=== PATIENT | female | born 1970 | race Caucasian/White ===

== ENCOUNTER → 2018-02-23 | Outpatient (CLI) | payer OTHER ==
[~2018-02-23] MED LIST: ASCO500T8 PO; AZAT50TA9 PO; CALC-171 PO; CHOL400T2 PO; CYAN250T5 PO; IRON18TA PO
== END | disposition home or self-care (01) ==
LOC: CFH 12:11
PROVIDERS: ATTEND Internal Medicine Gastroenterology
DX: M85.88 Other specified disorders of bone density and structure, other site (principal); K50.90 Crohn's disease, unspecified, without complications; R71.8 Other abnormality of red blood cells; E55.9 Vitamin D deficiency, unspecified; F45.8 Other somatoform disorders
CPT/HCPCS: 77080